=== PATIENT | male | born 2000 | race Caucasian/White ===

== ENCOUNTER → 2023-06-10 09:01 | Outpatient (REF) | payer OTHER, SELFPAY ==
--- NOTE | 2023-06-12 00:09 | EEG.RPT ---
Electroencephalogram Report
Recording
Date of EE06/11/23
Type of EEG: Extended Monitoring
Length of EEG recordin day 21 mins
Done with Video Recording: No
Patient Status: Outpatient
Recording Conditions: Awake, Drowsy and Asleep
Hyperventilation Performed: Yes
Photic Stimulation Performed: Yes
Report
METHODS
A 21 channel digitized electroencephalogram was performed at [facility]. The 10/20 international system of electrode placement was used. In addition to EEG, the patient was monitored for EKG. The duration of the recording was 24 hours and
21 minutes.
BACKGROUND
During the awake state, with the eyes closed, the background consisted of a normal amplitude, 9-10 Hertz posterior reactive rhythm that attenuated appropriately with eye opening. Beta activity was distributed diffusely with an anterior predominance.
There was a normal anterior-posterior voltage gradient. With eye opening the background activity changed to a low voltage mixture of alpha, beta, and occasional theta range frequencies. There were no significant asymmetries of background activity
noted.
SLEEP
Stage II sleep was obtained and consisted of symmetrical sleep spindles and vertex sharp waves.
HYPERVENTILATION
Hyperventilation resulted in no slowing of the background activity but no appearance of abnormal activity.
PHOTIC STIMULATION
Photic stimulation using a step-garnett increase in photic frequency varying from 1-31 Hertz resulted in driving responses at various frequencies but no appearance of abnormal activity.
ABNORMAL EEG ACTIVITY
None
CLINICAL EVENTS
None
INTERPRETATION AND CLINICAL CORRELATION
This EEG is normal during the awake and sleep states as well as during the activation procedures of hyperventilation and photic stimulation. No seizures were noted during the recording. A normal EEG, in itself, does not rule out a diagnosis of
epilepsy. If clinical suspicion for seizure persists, a sleep-deprived and/or prolonged recording may be warranted.
== END ==
LOC: RCS 09:01
PROVIDERS: ATTENDING PHYSICIAN Psychiatry & Neurology Neurology; FAMILY PHYSICIAN Pediatrics
DX: R40.20 Unspecified coma (principal)
CPT/HCPCS: 95708